=== PATIENT | female | born 1940 | race Caucasian/White ===

== ENCOUNTER 2019-06-16 08:30 | Day surgery (SDC) | payer MEDICARE ==
[~2019-06-16 08:30] MED LIST: Acetaminophen TAB* 325 MG PO PRN; Buffered Lidocaine 1% SYRIN* 1 ML/SYRINGE INTRADERM ONE
[2019-06-16] MEDS ORDERED: Midazolam* 1 MG/ML 2 ML VIAL (2 MG) ONE (10:13)
[2019-06-16 11:22] VITALS: BP 146/64
--- NOTE | 2019-06-16 11:44 | OP ---
DATE OF OPERATION: 06/16/2019. DATE OF : 1940. SURGEON: Ricardo Camarena M.D. PREOPERATIVE DIAGNOSIS: Cataract right eye. POSTOPERATIVE DIAGNOSIS: Cataract right eye. OPERATIVE PROCEDURE: Extracapsular cataract extraction with intraocular lens implant right eye. PROCEDURE: The patient was brought to the operating room after being given 1/2% Alcaine with epineph rine drops in the preoperative area. The eye was prepped and draped in the usual sterile fashion. S terile drape and eyelid speculum were placed. Again, topical 1/2% Alcaine with epinephrine was given . A paracentesis incision was made at the 9 o'clock position with the No.75 blade. Clear cornea inc ision 2.2 x 2.2-mm was created at the 12 o'clock position starting at the anterior limbus using the 2 .2-mm keratome. The anterior chamber was irrigated with 0.4 mL of 1% non-preservative intracameral l idocaine and filled with DisCoVisc. A capsulorrhexis was completed using the cystotome and the Utrat a forceps. Hydrodissection was performed with balanced salt solution. The lens nucleus was removed w ith the Phacoemulsification handpiece without incident. Cortex was removed with the irrigation-aspir ation handpiece. The capsular bag was re-inflated using DisCoVisc and an SN60WF 23.5 implant was ins erted with the shooter. The irrigation-aspiration handpiece was used to remove all residual DisCoVis c. The eye was refilled with balanced salt solution and the wound checked and found to be watertight . Topical Maxitrol drops were given. [id number]/[facility] #: [id number]
[2019-06-16] MEDS ORDERED: Lidocaine 1% MPF ** 5 ML VIAL ONE (15:06)
[2019-06-16] MEDS ORDERED: Phenylephrine OPHTH SOL 2.5%* 2 ML ONE (15:06)
[2019-06-16] MEDS ORDERED: Proparacaine 0.5% OPHTH.SOL* 15 ML BTL ONE (15:06)
[2019-06-16] MEDS ORDERED: Ketorolac 0.5% OPHTH (NF) 0.5 % 5 ML BTL ONE (15:06)
[2019-06-16] MEDS ORDERED: Cyclopentolate 1% OPTH.SOL* 2 ML BTL ONE (15:06)
[2019-06-16] MEDS ORDERED: Lidocaine 2% w/ EPI 1:200,000* 20 ML SDV VIAL ONE (15:06)
[2019-06-16] MEDS ORDERED: acetaZOLAMIDE TAB* 250 MG ONE (15:06)
[2019-06-16] MEDS ORDERED: Povidone Iodine 5% OPTH* 30 ML BTL ONE (15:06)
[2019-06-16] MEDS ORDERED: Neomycin/Polymy/Dex OPTH.SUSP* MAXITROL 0.1% 5 ML ONE (15:06)
== END 2019-06-16 13:56 | disposition home or self-care (01) ==
LOC: OREAST 08:30
PROVIDERS: ATTEND Specialist
DX: H25.811 Combined forms of age-related cataract, right eye (principal); I10 Essential (primary) hypertension; K21.9 Gastro-esophageal reflux disease without esophagitis; E78.00 Pure hypercholesterolemia, unspecified; Z87.891 Personal history of nicotine dependence; F41.8 Other specified anxiety disorders
CPT/HCPCS: A9270-GY; J2250; V2632